=== PATIENT | female | born 2000 | race Caucasian/White ===

== ENCOUNTER 2021-07-17 10:31 | Emergency (ER) | payer MEDICAID ==
[~2021-07-17] VITALS: Ht 170.2 cm; Wt 65.9 kg
[2021-07-17] MEDS ORDERED: LORazepam 2 mg/ml vial IV ONE (10:45)
[2021-07-17] MEDS ORDERED: diphenhydrAMINE 50 mg/ml inj IV ONE (10:45)
[2021-07-17] MEDS ORDERED: normal saline 1000ml 1,000 ML IV ONE (10:45)
[2021-07-17] MEDS ORDERED: proCHLORperazine 10 MG/2 ml inj IV ONE (10:45)
[2021-07-17] MEDS ORDERED: ketorolac tromethamine 15mg/ml inj. IV ONE (10:45)
[2021-07-17 12:10] VITALS: BP 112/68
[2021-07-17] MEDS ORDERED: ONDA4TAB12 PO (12:28)
[2021-07-17] MEDS ORDERED: SUMA50TA PO (12:28)
== END 2021-07-17 13:07 | disposition home or self-care (01) ==
LOC: ER 10:32
DX: G43.909 Migraine, unspecified, not intractable, without status migrainosus (principal); R11.2 Nausea with vomiting, unspecified; Z79.899 Other long term (current) drug therapy
CPT/HCPCS: 96361; 96374; 96375; 99284; J0780; J1200; J1885; J2060; J7030

== ENCOUNTER 2024-02-24 09:07 | Emergency (ER) | payer MEDICAID ==
[~2024-02-24] VITALS: Ht 144.8 cm; Wt 70.0 kg
[~2024-02-24 09:07] MED LIST: ONDA-243 PO
[2024-02-24 09:14] VITALS: TEMP 97
[2024-02-24 10:25] LABS: BASOPHILS # (AUTO) 0.1 X10'3 (0-0.2); BASOPHILS % (AUTO) 0.6 % (0-1); EOSINOPHILS # (AUTO) 0.1 X10'3 (0-0.9); HEMATOCRIT 44.2 % (35.0-45.0); HEMOGLOBIN 15.4 g/dl (12.0-16.0); LYMPHOCYTES # (AUTO) 1.8 X10'3 (1.1-4.8); LYMPHOCYTES % (AUTO) 20.4 % (21-51); MEAN CORPUSCULAR HEMOGLOBIN 31.4 PG (27.0-31.0); MEAN CORPUSCULAR HGB CONC 34.8 g/dL (33.0-36.5); MEAN CORPUSCULAR VOLUME 90.3 FL (78-98); MEAN PLATELET VOLUME 7.3 FL (7.4-10.4); MONOCYTES # (AUTO) 0.4 X10'3 (0-0.9); MONOCYTES % (AUTO) 4.8 % (2-12); NEUTROPHILS # (AUTO) 6.6 X10'3 (1.8-7.7); NEUTROPHILS % (AUTO) 73.2 % (42-75); PLATELET COUNT 392 X10'3 (140-440); RED BLOOD COUNT 4.89 X10'6 (4.20-5.60); RED CELL DISTRIBUTION WIDTH 12.8 % (11.5-14.5); WHITE BLOOD COUNT 8.9 X10'3 (4.5-11.0)
[2024-02-24 10:45] LABS: ALANINE AMINOTRANSFERASE 61 U/L (12-78); ALKALINE PHOSPHATASE 77 IU/L (46-116); ANION GAP 12 (8-16); ASPARTATE AMINO TRANSFERASE 39 U/L (10-37); BILIRUBIN,TOTAL 0.4 MG/DL (0.1-1.0); BLOOD UREA NITROGEN 9 MG/DL (7-18); BUN/CREATININE RATIO 13.6 (10.0-20.0); CALCIUM 9.5 MG/DL (8.5-10.1); CHLORIDE 104 MMOL/L (99-107); CREATININE 0.66 MG/DL (0.40-0.90); GLUCOSE 125 MG/DL (70-104); POTASSIUM 4.2 MMOL/L (3.5-5.1); SODIUM 138 MMOL/L (135-145); TOTAL CARBON DIOXIDE 22.4 MMOL/L (24-32); TOTAL PROTEIN 7.9 G/DL (6.4-8.2); eCRCL 80 ML/MIN; eGFR > 90 ML/MIN
[2024-02-24] MEDS: ondansetron/PF 4mg/2ml inj IV ONE (10:55)
[2024-02-24] MEDS: ketorolac trometh 15mg/ml vial 15 MG/ML ML IV ONE (10:56)
[2024-02-24] MEDS: diphenhydrAMINE 50 mg/ml inj IV ONE (10:56)
[2024-02-24 11:16] LABS: BILIRUBIN,URINE NEGATIVE (Neg); COLOR,URINE YELLOW (Yellow); GLUCOSE, URINE NEGATIVE (Neg); KETONES,URINE NEGATIVE (Neg); LEUKOCYTE ESTERASE ,URINE NEGATIVE (Neg); NITRITES, URINE NEGATIVE (Neg); OCCULT BLOOD,URINE NEGATIVE (Neg); PROTEIN,URINE NEGATIVE (Neg); UROBILINOGEN,URINE 0.2 E.U/dL (0.2-1.0)
[2024-02-24 11:24] LABS: UA COLLECTION TYPE CLN CATCH MIDSTREAM
[2024-02-24 11:25] LABS: BACTERIA,URINE FEW /HPF (Neg); CLARITY,URINE SLIGHTLY CLOUDY (Clear); RBC,URINE 0-2 /HPF (0-2); WBC,URINE 0-4 /HPF (0-4)
[2024-02-24 11:26] LABS: MUCUS STRANDS FEW /LPF (Neg); SQUAMOUS EPITHELIAL CELL,UR MODERATE /LPF (FEW)
[2024-02-24 12:16] LABS: URINE HCG NEGATIVE (NEG)
[2024-02-24 12:45] VITALS: BP 121/83; PULSE 88; RESP 18; O2SAT 97
== END 2024-02-24 13:13 | disposition home or self-care (01) ==
LOC: ER 09:08
DX: G43.909 Migraine, unspecified, not intractable, without status migrainosus (principal); Z20.822 Contact with and (suspected) exposure to COVID-19; B34.9 Viral infection, unspecified; Z79.899 Other long term (current) drug therapy
CPT/HCPCS: 36415; 80053; 81001; 81025; 85025; 87502; 87503; 87811; 96374; 96375; 99284; J1200; J1885; J2405

== ENCOUNTER 2024-05-29 00:53 | Emergency (ER) | payer MEDICAID ==
[~2024-05-29] VITALS: Ht 144.8 cm; Wt 69.9 kg
[2024-05-29 01:01] VITALS: TEMP 97.8
[2024-05-29] MEDS: proCHLORperazine 10 MG/2 ml inj IV ONE (02:29)
[2024-05-29] MEDS: normal saline 1000ml 1,000 ML IV ONE (02:29)
[2024-05-29] MEDS: diphenhydrAMINE 50 mg/ml inj IV ONE (02:29)
[2024-05-29 03:37] VITALS: BP 116/75; PULSE 79; RESP 16; O2SAT 99
== END 2024-05-29 03:38 | disposition home or self-care (01) ==
LOC: ER 00:54
DX: G43.909 Migraine, unspecified, not intractable, without status migrainosus (principal); Z79.899 Other long term (current) drug therapy
CPT/HCPCS: 96361; 96374; 96375; 99284; J0780; J1200; J7030

== ENCOUNTER 2024-12-12 13:28 | Emergency (ER) | payer MEDICAID ==
[~2024-12-12] VITALS: Ht 144.8 cm; Wt 68.2 kg
[2024-12-12 13:39] VITALS: BP 137/99; PULSE 76; TEMP 97.8; O2SAT 98
[2024-12-12 14:07] LABS: MEAN PLATELET VOLUME 7.7 FL (7.4-10.4); RED CELL DISTRIBUTION WIDTH 12.8 % (11.5-14.5)
[2024-12-12 14:23] LABS: CREATININE 0.98 MG/DL (0.40-0.90); TOTAL CARBON DIOXIDE 24.4 MMOL/L (24-32); eCRCL 54 ML/MIN; eGFR 70 ML/MIN
[2024-12-12 14:28] LABS: URINE HCG NEGATIVE (NEG)
[2024-12-12 14:36] LABS: LEUKOCYTE ESTERASE ,URINE NEGATIVE (Neg); NITRITES, URINE NEGATIVE (Neg); OCCULT BLOOD,URINE NEGATIVE (Neg)
[2024-12-12 14:41] LABS: UA COLLECTION TYPE CLN CATCH MIDSTREAM
--- NOTE | 2024-12-12 15:29 | Physician Documentation ---
History of Present Illness ~ Chief Complaint: Dizziness Stated Complaint: VOMITING/MIGRAINE Time Seen by MD: 14:27 Mode of Arrival: POV, Ambulatory HPI Patient is seen today with complaints of nausea vomiting with headache and history of migraine. Patient states she also has some dizziness. She states she has not been able to keep down any medication or liquid today. She denies any diarrhea. She denies any fevers or chills in his no other concern or complaint at this time and denies any recent cough or cold-like symptoms or nasal congestion or discharge. Medication Reconciliation Allergies: Coded Allergies: No Known Allergies (Unverified , 12/12/24) Scheduled ONDANSETRON ODT 4mg tablet (Ondansetron Odt), 1 TABLET PO TID Review of Systems Constitutional: Denies: chills, fever, weakness Eyes: Denies: pain, blurred vision ENT: Denies: ear pain, nose pain, throat pain, mouth pain Respiratory: Denies: cough, shortness of breath Cardiovascular: Denies: chest pain, palpitations Gastrointestinal: Denies: abdominal pain, nausea, vomiting Genitourinary: Denies: burning, dysuria Female Genitalia: Denies: vaginal discharge, pelvic pain Neurological: Denies: headache, dizziness Musculoskeletal: Denies: pain, swelling Integumentary: Denies: rash, lesions Allergic/Immunologic: Denies: hives, itching Hematologic/Lymphatic: Denies: no symptoms reported Psychiatric: Denies: depression, anxiety Physical Exam Vital Signs: Temperature: 97.8, Source: Temporal, Heart Rate: 76, Respiratory Rate: 14, BP: 137/99, Pulse Oximetry: 98, Weight: 68.180 Physical Exam General: Awake and Alert, no acute distress. HEENT: Conjunctiva pink, Sclera clear, Mucus Membranes moist. Neck: Supple without masses and tenderness. Resp: Unlabored. Lungs clear to auscultation bilaterally. Heart: Regular Rate and rhythm, normal S1 and S2 without murmur, rub or gallop. Abdomen: Soft and non tender no organomegaly Extremities: No cyanosis,clubbing or edema. Skin: Warm and Dry. Progress Results/Orders Results/Orders Vital Signs 12/12/24 12/12/24 13:39 14:48 Temp 97.8 Pulse 76 Resp 18 14 B/P (MAP) 137/99 Pulse Ox 98 Laboratory Tests Test 12/12/24 13:42 12/12/24 13:52 Urine Specimen Description Cln catch midstream Urine Color Yellow Urine Clarity Clear Urine pH 8.0 Urine Specific Dinosaur 1.020 Urine Protein Negative Urine Glucose (UA) Negative Urine Ketones 15 H Urine Occult Blood Negative Urine Nitrite Negative Urine Bilirubin Negative Urine Urobilinogen 0.2 Urine Leukocyte Esterase Negative Urine Culture Indicated Not ind Volume Urine Centrifuged 10 ml Urine HCG, Qualitative Negative Urine Comment White Blood Count 10.0 Red Blood Count 5.01 Hemoglobin 15.6 Hematocrit 44.8 Mean Corpuscular Volume 89.4 Mean Corpuscular Hemoglobin 31.0 Mean Corpuscular Hemoglobin Concent 34.7 Red Cell Distribution Width 12.8 Platelet Count 476 H Mean Platelet Volume 7.7 Neutrophils (%) (Auto) 79.0 H Lymphocytes (%) (Auto) 17.6 L Monocytes (%) (Auto) 2.6 Eosinophils (%) (Auto) 0.2 Basophils (%) (Auto) 0.6 Neutrophils # (Auto) 7.9 H Lymphocytes # (Auto) 1.8 Monocytes # (Auto) 0.3 Eosinophils # (Auto) 0.0 Basophils # (Auto) 0.1 CBC Comment Sodium Level 136 Potassium Level 3.9 Chloride Level 102 Carbon Dioxide Level 24.4 Anion Gap 10 Blood Urea Nitrogen 7 Creatinine 0.98 H Estimated GFR/1.73 m2 70 BUN/Creatinine Ratio 7.1 L Glucose Level 124 H Calcium Level 9.8 Total Bilirubin 0.6 Aspartate Amino Transf (AST/SGOT) 29 Alanine Aminotransferase (ALT/SGPT) 52 Alkaline Phosphatase 109 Total Protein 8.5 H Albumin 4.5 Globulin 4.0 Albumin/Globulin Ratio 1.1 Chemistry Comments Medical Decision Making Findings Patient is seen today with complaints of nausea vomiting with headache and history of migraine. Patient states she also has some dizziness. She states she has not been able to keep down any medication or liquid today. She denies any diarrhea. She denies any fevers or chills in his no other concern or complaint at this time and denies any recent cough or cold-like symptoms or nasal congestion or discharge. Patient was treated with Toradol 30 mg IV, L of normal saline IV, Compazine IV 10 mg. Patient was feeling much better shortly after administration of medications. Patient was given prescription for meclizine 25-50 mg twice a day. Patient will follow up with primary care in 1-3 days if no better as needed sooner. Return to ED with any worsening, concerning or changing symptoms. Departure Disposition: 01 HOME / SELF CARE / HOMELESS Impression: Primary Impression: Vertigo Additional Impression: Migraine Qualified Codes: G43.909 - Migraine, unspecified, not intractable, without status migrainosus Condition: Improved Discharge Instructions: Migraine Headache, [id number], Vertigo Additional Instructions: Patient was treated with Toradol 30 mg IV, L of normal saline IV, Compazine IV 10 mg. Patient was feeling much better shortly after administration of medications. Patient was given prescription for meclizine 25-50 mg twice a day. Patient will follow up with primary care in 1-3 days if no better as needed sooner. Return to ED with any worsening, concerning or changing symptoms. Referrals: NO PRIMARY CARE PROVIDER (PCP) Prescriptions Meclizine HCl (Meclizine HCl) 25 Mg Tablet 1 TAB PO Q8H for 5 Days, #15 TAB Prov: LYNDA ROWAN 12/12/24 Signature Scribe Signature: No scribe Attestation: No scribe LYNDA ROWAN Dec 12, 2024 15:29
[2024-12-12] MEDS ORDERED: MECL-302 PO (15:42)
[2024-12-12] MEDS: ketorolac trometh 30MG/ML vial 30 MG/ML VIAL IV STA (15:59)
[2024-12-12] MEDS: normal saline 1000ml 1,000 ML IV STA (15:59)
[2024-12-12 16:15] VITALS: RESP 14
== END 2024-12-12 21:00 | disposition home or self-care (01) ==
LOC: ER 13:28
DX: G43.909 Migraine, unspecified, not intractable, without status migrainosus (principal); R42 Dizziness and giddiness; R11.2 Nausea with vomiting, unspecified; Z79.899 Other long term (current) drug therapy
CPT/HCPCS: 36415; 80053; 81003; 81025; 85025; 96361; 96374; 96375; 99284; J0780; J1200; J1885; J7030